=== PATIENT | male | born 1980 | race African-American/Black ===

== ENCOUNTER 2019-05-19 15:18 | Emergency (ER) | payer OTHER ==
[~2019-05-19] VITALS: Ht 175.2 cm; Wt 84.8 kg
[2019-05-19] MEDS ORDERED: CEPHALEXIN500 M1 PO (16:24)
== END 2019-05-19 16:34 | disposition home or self-care (01) ==
LOC: ED 15:18
DX: L03.012 Cellulitis of left finger (principal)